=== PATIENT | female | born 1990 | race African-American/Black ===

== ENCOUNTER 2019-07-18 18:35 | Day surgery (SDC) | payer OTHER ==
[2019-07-18 19:22] VITALS: BMI 38.4
[2019-07-18] MEDS ORDERED: hydrALAZINE 20 MG/ML VIAL SLOW IVP PRN (19:49)
--- NOTE | 2019-07-18 20:08 | HP ---
LABOR AND DELIVERY TRIAGE EVALUATION TIME OF EVALUATION: Roughly 1939, it is now 1950. LOCATION: Labor and Delivery triage bed B. CHIEF COMPLAINT: Possible contractions. The patient of Dr. Arias, the patient is currently incarcerated. HISTORY OF PRESENT ILLNESS: In brief, this is a 29-year-old G3, P2, with 2 previous C-sections, who is scheduled for repeat on Wednesday of this week with possible contractions. She denies vaginal bleeding or leakage of fluid, and has good movement. REVIEW OF SYSTEMS: Complete review of systems was done and is otherwise negative unless specified in the HPI. PAST OB HISTORY: Significant for two C sections. PAST SURGICAL HISTORY: Significant for 2 previous cesareans. PAST MEDICAL HISTORY: Negative. ALLERGIES: NEGATIVE TO MEDICAL ALLERGIES. PHYSICAL EXAMINATION: VITAL SIGNS: Her blood pressure is 114/72, pulse is 99, temperature is 98.7, respirations are 18 and nonlabored. GENERAL: Clinically, she is in no acute distress and appears to be clinically well. ABDOMEN: Soft, nontender. Cervical exam by the RN is 1 cm dilated, thick cervix and station still elevated. There is no gross evidence of rupture or vaginal bleeding. On external monitor, heart tones in the 120s to 130s and they are reactive. There is no contraction pattern on tocodynamometer, but maybe some irritability. ASSESSMENT: This is a G3, P2 with 2 previous C-sections, scheduled for repeat in 3 days, Wednesday. No evidence of active labor at this time. PLAN: 1. Observe for 1 hour. 2. Clinically well. 3. No evidence of acute maternal- compromise. Job ID: [id number]
== END 2019-07-18 20:48 | disposition home or self-care (01) ==
LOC: L&D/OP 18:35 → EEVIPCON 18:35 → L&D/OP 20:48
PROVIDERS: ATTEND Obstetrics & Gynecology
DX: O47.1 False labor at or after 37 completed weeks of gestation (principal); O34.219 Maternal care for unspecified type scar from previous cesarean delivery; Z3A.38 38 weeks gestation of pregnancy; Z91.018 Allergy to other foods

== ENCOUNTER 2019-07-21 09:42 | Inpatient (IN) | payer OTHER, MEDICAID ==
[2019-07-21] MEDS ORDERED: Promethazine HCl 25 MG/ML VIAL IM PRN ×2 (10:41→13:22)
[2019-07-21] MEDS ORDERED: Ondansetron PF 4 MG/2 ML Vial IVP PRN ×2 (10:41→13:22)
[2019-07-21] MEDS ORDERED: hydrALAZINE 20 MG/ML VIAL SLOW IVP PRN ×2 (10:41→15:26)
[2019-07-21 10:43] VITALS: BMI 39.1
[2019-07-21] MEDS ORDERED: CEFAZOLIN 2 GM in Premix Bag 1 BAG IVPB SCH (10:45)
[2019-07-21] MEDS ORDERED: Bicitra 30 ML UDCUP PO SCH (10:45)
[2019-07-21] MEDS ORDERED: Ropivacaine 0.2% 550 ML 750 ML NERVE BLCK SCH (10:45)
[2019-07-21] MEDS: Lactated Ringer's 1,000 ML IV SCH ×2 (10:50→12:04)
[2019-07-21 11:12] LABS: Mean Corpuscular HGB CONC 33.1 g/dL (32.0-36.0); Mean Corpuscular Hemoglobin 27.5 pg (27.0-31.0); Mean Corpuscular Volume 83.2 fL (78.0-98.0); Mean Platelet Volume 9.2 fL (7.4-10.4); Platelet Count 217 thou/uL (130-400); RBC Distribution Width 13.7 % (11.5-14.5); Red Blood Cell (RBC) Count 3.64 mill/uL (4.20-5.40); White Blood Cell (WBC) Count 7.8 thou/uL (4.8-10.8)
[2019-07-21] MEDS ORDERED: MORPHINE 5 MG/10 ML PF VIAL ONE (11:23)
[2019-07-21] MEDS ORDERED: Oxytocin 10 UNITS/ML VIAL ONE (11:23)
[2019-07-21] MEDS ORDERED: PHENYLEPHRINE-NS 100 MCG/ML 10 ML SYRINGE ONE (11:24)
[2019-07-21 11:49] LABS: HBSAg Index 0.33 S/CO (0-0.99); Hep B Surf Ag Non-Reactive S/CO (NonReactive); Syphilis Antibody Nonreactive (Nonreactive); Syphilis Antibody Index 0.08 S/CO (<1.00 Non-Reactive)
[2019-07-21] MEDS ORDERED: Ropivacaine HCl/PF 750 ML NERVE BLCK SCH (12:00)
[2019-07-21 12:53] LABS: HIV (1/2) Antibody/Antigen Non-Reactive (NonReactive); HIV 1/2 INDEX 0.15 S/CO (<1.00)
[2019-07-21] MEDS ORDERED: Lidocaine 1% (PF) 30 ML VIAL ONE (12:57)
[2019-07-21] MEDS ORDERED: Ondansetron HCl/PF 4 MG/2 ML Vial IVP PRN (13:22)
[2019-07-21] MEDS ORDERED: Naloxone HCl 0.4 mg/ml Vial IV PRN (13:22)
[2019-07-21] MEDS ORDERED: Meperidine HCl/PF 25 MG/ML VIAL SLOW IVP PRN (13:22)
[2019-07-21] MEDS ORDERED: L&D-Morphine 4 MG/ML VIAL SLOW IVP PRN (13:22)
[2019-07-21] MEDS ORDERED: Promethazine HCl 25 MG SUPP PR PRN (13:22)
[2019-07-21] MEDS ORDERED: Naloxone HCl 0.4 mg/ml Vial IVP PRN ×2 (13:22)
[2019-07-21] MEDS ORDERED: HYDROmorphone 2 MG/ML VIAL SLOW IVP PRN (13:22)
[2019-07-21] MEDS ORDERED: Communication Order-Pharmacy FS SCH (13:30)
[2019-07-21] MEDS ORDERED: Ketorolac Tromethamine 30 MG/ML VIAL IVP SCH (13:30)
[2019-07-21] MEDS ORDERED: diphenhydrAMINE 50 MG/ML VIAL ONE (13:57)
[2019-07-21] MEDS: diphenhydrAMINE 50 MG/ML VIAL IVP PRN (13:58)
[2019-07-21] MEDS ORDERED: NS / Oxytocin 40 units/1000ml 1,000 ML ONE (14:01)
[2019-07-21] MEDS ORDERED: Ketorolac Tromethamine 30 MG/ML VIAL ONE (15:12)
[2019-07-21] MEDS ORDERED: Lanolin Ointment 7 GM TUBE TOP PRN (15:26)
[2019-07-21] MEDS ORDERED: Bisacodyl 10 MG SUPP PR PRN (15:26)
[2019-07-21] MEDS ORDERED: NS / Oxytocin 40 units/1000ml 1,000 ML IV SCH (15:26)
--- NOTE | 2019-07-21 17:17 | OP ---
DATE OF PROCEDURE: 07/21/2019 PREOPERATIVE DIAGNOSES: 1. Previous section x2. 2. 39 weeks. 3. Planned repeat section. POSTOPERATIVE DIAGNOSES: Status post repeat low-transverse section and placement of On-Q pump. PROCEDURES PERFORMED: Repeat low-transverse section and placement of On-Q pump. INSTRUMENT AND CONTROL TECHNICIAN: Devorah Jasso PA-C. COMPLICATIONS: None. ESTIMATED BLOOD LOSS: 650 mL. QBL: Pending. ANESTHESIA: Spinal per Dr. Liao. Complications, none. OPERATIVE FINDINGS: Low-transverse hysterotomy without extension. Normal-appearing uterus, tubes, and ovaries bilaterally. Minimal adhesive disease. Vigorous female infant, Apgars 9 and 9, weight pending at the time of dictation, to [facility]. Surgical sites hemostatic. DESCRIPTION OF PROCEDURE: The patient was taken back to the OR with IV fluids running. When she was in the OR, spinal anesthesia was obtained. The patient was then placed in dorsal supine position with a left lateral tilt. Sanders catheter was placed using sterile technique. 2 g of Ancef was administered. The abdomen was prepped and draped in normal fashion for section. Anesthesia was tested after the patient was draped and found to be adequate. A Pfannenstiel skin incision was made with a scalpel. The skin incision was carried down through the subcutaneous tissue to the fascia. Once the fascia was reached, it was incised in the midline and extended superolaterally using curved Chatman scissors. Vonnie clamps were placed at the superior border of the fascia, which was sharply and bluntly dissected off the rectus abdominis muscles in both caudad and cephalad direction allowing adequate space for delivery of the infant. The rectus muscles were bluntly dissected. The peritoneum was tented off the abdominal wall and finally dissected and entered with scissors. The peritoneum was then stretched. An Manish O retractor was placed into the abdominal peritoneal cavity for retraction, visualization, and protection of the wound. The uterus was examined. A bladder flap was created, and the bladder was dissected away from the planned hysterotomy site. A low-transverse hysterotomy was made with a scalpel. Hysterotomy was bluntly entered and stretched laterally. Amniotomy was performed with clear fluid noted. The was delivered with gentle fundal pressure through the incision without difficulty. She had immediate cry. The cord was doubly clamped and cut. The nose and mouth were suctioned. The infant was handed off to special care nurse in attendance. Cord blood was collected. The placenta was delivered. The uterus was exteriorized, massaged to firm, and cleared of clot and debris. The uterus was then returned to the abdominal cavity. The hysterotomy was inspected with no extension noted. The hysterotomy was then closed using Monocryl suture in a running locked fashion. The hysterotomy was inspected with a small area of bleeding noted in the right corner. This area was oversewn with a [id number] Monocryl suture with hemostasis noted. After hemostasis of the hysterotomy was noted, the hysterotomy was copiously irrigated and suctioned dry and was inspected again with no areas of bleeding noted. The Manish O retractor was removed from the abdominal cavity. The peritoneum, rectus muscle, and fascia were inspected, and any small areas of bleeding were controlled with Bovie cauterization. The peritoneum was reapproximated with plain gut suture. Two On-Q catheter tips were directed superior to the incision through the skin, subcutaneous tissue, and fascia and directed down toward the corners of the incision. They were primed with lidocaine. The fascia was then reapproximated in a running fashion with PDS suture from corner to corner. Subcutaneous tissue was irrigated and dried. Any small areas of bleeding were controlled with Bovie cauterization. Subcutaneous tissue was reapproximated in a running fashion with plain gut suture. The skin was closed with 4-0 Monocryl and dressed with Dermabond dressing. The On-Q catheter tips were sterilely dressed as well. The fundus was noted to be firm. There was minimal bleeding at the end of the section. The patient was in good condition and was transferred to the recovery room. Job ID: [id number]
[2019-07-21] MEDS: Ketorolac Tromethamine 30 MG/ML VIAL IVP PRN (20:07)
[2019-07-21] MEDS: Docusate Calcium (SURFAK) 240 MG CAP PO SCH (21:03)
[2019-07-21] MEDS: Ferrous Sulfate 325 MG TAB PO SCH (21:03)
[2019-07-22] MEDS: diphenhydrAMINE 50 MG/ML VIAL IVP PRN (00:21)
[2019-07-22] MEDS: Ketorolac Tromethamine 30 MG/ML VIAL IVP PRN (06:02)
--- NOTE | 2019-07-22 06:38 | PDOC.PP ---
Post Progress Note Post Day #: 1 Subjective: doing well PO intake tolerated: yes Flatus: yes Ambulation: yes Vital Signs (12 hours) Temp Pulse Resp BP Pulse Ox 07/22/19 04:35 98.7 F 60 18 103/60 07/21/19 23:15 98.6 F 72 18 110/65 07/21/19 20:00 98.7 F 65 18 108/63 96 Weight Weight 228 lb - Physical Examination Respiratory: clear to auscultation bilaterally Abdominal: + bowel sounds, lochia, no distention, appropriately TTP Extremities: negative homans (B) Skin: CS incision dry & intact (on Q pump in use covering incision. Op note states sutured) Psychiatric: A&Ox3, normal affect Result Diagrams: 07/21/19 11:01 Additional Labs: Post Labs Blood Type A POSITIVE 07/21/19 11:32 Hep Bs Antigen Non-Reactive S/CO (NonReactive) 07/21/19 11:01 (1) Delivery by section Code(s): [id number] - Status: Acute - Assessment/Plan POD1 doing well. No acute complication. Routine postop care for now. Home on either POD 2 or 3
[2019-07-22 07:14] LABS: Mean Corpuscular HGB CONC 33.5 g/dL (32.0-36.0); Mean Corpuscular Hemoglobin 27.6 pg (27.0-31.0); Mean Corpuscular Volume 82.5 fL (78.0-98.0); Platelet Count 208 thou/uL (130-400); RBC Distribution Width 13.8 % (11.5-14.5); Red Blood Cell (RBC) Count 3.27 mill/uL (4.20-5.40); White Blood Cell (WBC) Count 10.4 thou/uL (4.8-10.8)
[2019-07-22] MEDS ORDERED: Adacel (T-DAP) 0.5 ML SYRINGE IM ONE (09:00)
[2019-07-22] MEDS: Prenatal Vitamin 1 TAB PO SCH (09:20)
[2019-07-22] MEDS: Ferrous Sulfate 325 MG TAB PO SCH ×2 (09:20→22:21)
[2019-07-22] MEDS: Simethicone Chewable 80 MG TAB PO PRN (09:21)
[2019-07-22] MEDS: Docusate Calcium (SURFAK) 240 MG CAP PO SCH ×2 (09:21→22:21)
[2019-07-22] MEDS: HYDROcodone/Acetaminophen 5/325 mg Tablet PO PRN (17:05)
[2019-07-22] MEDS: Ibuprofen 800 MG TAB PO SCH (22:20)
[2019-07-23] MEDS: HYDROcodone/Acetaminophen 5/325 mg Tablet PO PRN ×2 (03:42→21:49)
[2019-07-23] MEDS: Simethicone Chewable 80 MG TAB PO PRN (03:44)
[2019-07-23] MEDS: Ibuprofen 800 MG TAB PO SCH ×3 (06:20→21:50)
--- NOTE | 2019-07-23 06:32 | PDOC.PP ---
Post Progress Note Post Day #: 2 PO intake tolerated: yes Flatus: no Ambulation: no Vital Signs (12 hours) Temp Pulse Resp BP Pulse Ox 07/23/19 03:30 98.6 F 84 18 122/77 07/22/19 20:00 98.7 F 87 17 106/59 L 98 Weight Weight 103.419 kg - Physical Examination General: NAD Respiratory: non-labored breathing Deviation from normal: abdomen nontender Skin: CS incision dry & intact, no rash Neurological: no gross focal deficits Psychiatric: A&Ox3, normal affect Result Diagrams: 07/22/19 06:54 Additional Labs: Post Labs Blood Type A POSITIVE 07/21/19 11:32 Hep Bs Antigen Non-Reactive S/CO (NonReactive) 07/21/19 11:01 (1) Delivery by section Code(s): [id number] - Status: Acute - Assessment/Plan s/p rLTCS on 07/21, POD 2. Doing well. Plan for dc on Wednesday. Continue routine care. Addendum - Attending - Attending Attestation Date/Time: 07/23/19 0638 I personally evaluated the patient and discussed the management with Dr. Arredondo. I agree with the History, Examination, Assessment and Plan documented above.
[2019-07-23] MEDS: Prenatal Vitamin 1 TAB PO SCH (09:41)
[2019-07-23] MEDS: Ferrous Sulfate 325 MG TAB PO SCH ×2 (09:42→21:50)
[2019-07-23] MEDS: Docusate Calcium (SURFAK) 240 MG CAP PO SCH ×2 (09:42→21:51)
--- NOTE | 2019-07-23 17:17 | PDOC.EVN ---
Event Note - Event Note Event Note: Just called by RN on PP that the on-Q pump is empty. OK to pull and remove.
[2019-07-24] MEDS: Ibuprofen 800 MG TAB PO SCH ×3 (06:29→22:02)
[2019-07-24] MEDS: Docusate Calcium (SURFAK) 240 MG CAP PO SCH ×2 (07:57→19:55)
[2019-07-24] MEDS: Ferrous Sulfate 325 MG TAB PO SCH ×2 (07:57→19:55)
[2019-07-24] MEDS: Prenatal Vitamin 1 TAB PO SCH (07:57)
[2019-07-24] MEDS: HYDROcodone/Acetaminophen 5/325 mg Tablet PO PRN ×3 (07:58→19:56)
--- NOTE | 2019-07-24 09:50 | PDOC.PP ---
Post Progress Note Post Day #: 3 Subjective: doing well, took [place] this AM for pain, tolerating regular diet PO intake tolerated: yes Flatus: yes Ambulation: yes Vital Signs (12 hours) Temp Pulse Resp BP Pulse Ox 07/24/19 07:40 97.9 F 70 14 103/56 L 98 07/24/19 04:37 98.8 F 77 18 109/63 Weight Weight 228 lb - Physical Examination General: NAD Respiratory: non-labored breathing Abdominal: no distention Skin: CS incision dry & intact Neurological: no gross focal deficits Psychiatric: A&Ox3, normal affect Result Diagrams: 07/22/19 06:54 Additional Labs: Post Labs Blood Type A POSITIVE 07/21/19 11:32 Hep Bs Antigen Non-Reactive S/CO (NonReactive) 07/21/19 11:01 (1) Inmate in correctional facility Code(s): Z65.1 - IMPRISONMENT AND OTHER INCARCERATION Status: Acute - Assessment/Plan POD 3 doing well, discussed holding [place] and seeing if her pain is controlled with IBU only as she cannot be discharge back to facility with that pain medication. OnQ pump is out. DC today vs. tomorrow planned.
[2019-07-25] MEDS: HYDROcodone/Acetaminophen 5/325 mg Tablet PO PRN (05:14)
[2019-07-25] MEDS: Ibuprofen 800 MG TAB PO SCH (05:14)
[2019-07-25 08:08] VITALS: BP 108/60; TEMP 98.7
--- NOTE | 2019-07-25 08:08 | PDOC.PP ---
Post Progress Note Post Day #: 4 Subjective: baby has been DC, pt doing well, post op goals met PO intake tolerated: yes Flatus: yes Ambulation: yes Weight Weight 228 lb - Physical Examination General: NAD Respiratory: non-labored breathing Abdominal: no distention Skin: CS incision dry & intact Psychiatric: A&Ox3, normal affect Result Diagrams: 07/22/19 06:54 Additional Labs: Post Labs Blood Type A POSITIVE 07/21/19 11:32 Hep Bs Antigen Non-Reactive S/CO (NonReactive) 07/21/19 11:01 (1) Inmate in correctional facility Code(s): Z65.1 - IMPRISONMENT AND OTHER INCARCERATION Status: Acute - Assessment/Plan POD4 DC to facility.
[2019-07-25] MEDS: Ferrous Sulfate 325 MG TAB PO SCH (08:50)
[2019-07-25] MEDS: Prenatal Vitamin 1 TAB PO SCH (08:50)
[2019-07-25] MEDS: Docusate Calcium (SURFAK) 240 MG CAP PO SCH (08:50)
== END 2019-07-25 09:50 | DRG 788 ==
LOC: L&D 10:05 → 3SW 15:54
PROVIDERS: ADMIT Obstetrics & Gynecology; ATTEND Obstetrics & Gynecology
PROC: 10D00Z1 Extraction of Products of Conception, Low, Open Approach (ICD-10-PCS; principal; 2019-07-21)
DX: O34.211 Maternal care for low transverse scar from previous cesarean delivery (principal); Z3A.39 39 weeks gestation of pregnancy; Z37.0 Single live birth
CPT/HCPCS: 36415; 51702; 85027; 86780; 86850; 86900; 86901; 87340; 87389; J0690; J1200; J1885; J2001; J2274; J2590; J2795